=== PATIENT | male | born 1965 | race Hispanic/Latino ===

== ENCOUNTER 2018-06-27 11:47 | Observation (INO) | payer MEDICARE ==
[2018-06-26 16:53] LABS: BASOPHILS # (AUTO) 0.1 (0.0-0.1); BASOPHILS % 0.8 % (0.0-1.0); EOSINOPHILS # (AUTO) 0.2 (0.0-0.4); EOSINOPHILS % 1.9 % (0.0-6.0); HEMATOCRIT 44.4 % (38.2-49.6); HEMOGLOBIN 15.6 g/dL (14.0-18.0); LYMPHOCYTES # (AUTO) 2.1 (1.0-3.2); LYMPHOCYTES % 26.3 % (18.0-39.1); MEAN CORPUSCULAR HEMOGLOBIN 30.6 pg (28-32); MEAN CORPUSCULAR HGB CONC 35.1 g/dL (31-35); MEAN CORPUSCULAR VOLUME 87.1 fL (81-99); MONOCYTES # (AUTO) 0.7 (0.2-0.8); MONOCYTES % 8.4 % (4.4-11.3); NEUTROPHILS # (AUTO) 4.9 (2.1-6.9); NEUTROPHILS % 62.2 % (38.7-80.0); PLATELET COUNT 219 x10e3/uL (140-360); RED CELL DISTRIBUTION WIDTH 12.8 % (11.7-14.4)
[2018-06-26 17:05] LABS: INR 0.82; PROTHROMBIN TIME 12.1 seconds (11.9-14.5)
[2018-06-26 17:52] LABS: ANION GAP 15.9 mmol/L (8-16); BLOOD UREA NITROGEN 21 mg/dL (7-26); BUN/CREATININE RATIO 17 (6-25); CALCIUM 10.5 mg/dL (8.4-10.2); CARBON DIOXIDE 23 mmol/L (22-29); CHLORIDE 103 mmol/L (98-107); CREATININE, SERUM 1.21 mg/dL (0.72-1.25); EST GLOMERULAR FILTRATION RATE > 60 ML/MIN (60-); GLUCOSE 287 mg/dL (74-118); POTASSIUM 3.9 mmol/L (3.5-5.1); SODIUM 138 mmol/L (136-145)
[~2018-06-27] VITALS: Ht 167.6 cm; Wt 112.9 kg
[~2018-06-27 11:47] MED LIST: ASPIR 8181 MG PO; BACLOFEN10 MG PO; BYSTOLIC5 MG PO; FUROSEMIDE40 MG PO; HYDROCODONE-IBU1 TAB; LANTUS 3ML100 UNITS/ SQ; LEVEMIR SQ; LEVOTHYROXINE25 MCG PO; LEVOTHYROXINE50 MCG PO; LIPITOR10 MG PO; LISINOPRIL10 MG PO; LOSARTAN POTASS25 MG PO; METFORMIN HCL850 MG PO; METOPROLOL SUCC50 MG PO; METOPROLOL TART25 MG PO; MEVACOR20 MG PO; NAPROXEN500 MG PO; NITROGLYCERIN0.4 MG SL; NOVOLOG SQ; ONGLYZA5 MG PO; PLAVIX75 MG PO; POTASSIUM CHLO10 ME1 PO; RANEXA500 MG PO; TRICOR145 MG PO
[2018-06-27] MEDS ORDERED: BACITRACIN 50,000 UNIT VIAL ONE (13:04)
[2018-06-27] MEDS ORDERED: SODIUM CHLORIDE 0.9% 1000ML 2,000 ML ONE (13:05)
[2018-06-27] MEDS ORDERED: LIDOCAINE HCL 2% LOCAL 20 ML VIAL ONE (13:05)
[2018-06-27] MEDS ORDERED: SODIUM CHLORIDE 0.9% 500ML 500 ML ONE (13:05)
[2018-06-27] MEDS ORDERED: VANCOMYCIN 1GM/NS 250 ML 250 ML ONE (13:19)
[2018-06-27] MEDS ORDERED: FENTANYL CITRATE/PF 100MCG/2 ML INJ ONE ×2 (15:47→19:31)
[2018-06-27] MEDS ORDERED: NITROGLYCERIN 0.4 MG SUBL SL PRN (16:45)
[2018-06-27] MEDS ORDERED: ONDANSETRON HCL INJ 2 MG/ML VIAL IV PRN (16:45)
[2018-06-27 16:50] VITALS: BP 123/83
[2018-06-27 17:05] VITALS: BP 123/83
[2018-06-27] MEDS: METOPROLOL TARTRATE 25 MG TAB PO SCH (17:05)
[2018-06-27] MEDS: METFORMIN HCL 850 MG TAB PO SCH (17:05)
[2018-06-27] MEDS ORDERED: PROPOFOL IV EMULSION 10 MG/ML 20 ML VIAL ONE (17:09)
[2018-06-27] MEDS: MORPHINE SULFATE 2 MG/ML SYR IV PRN ×2 (17:10→21:18)
[2018-06-27] MEDS ORDERED: MIDAZOLAM HCL 2 MG/2 ML VIAL ONE (19:31)
[2018-06-27 20:00] VITALS: BP 130/74
[2018-06-27] MEDS ORDERED: FENOFIBRATE 145 MG TAB PO SCH (21:00)
[2018-06-27] MEDS ORDERED: INSULIN DETEMIR 100 UNIT/ML PEN SQ SCH ×2 (21:00→21:15)
[2018-06-27] MEDS: BACLOFEN 10 MG TAB PO SCH (21:07)
[2018-06-28] VITALS: BP 142/83
[2018-06-28] MEDS: MORPHINE SULFATE 2 MG/ML SYR IV PRN ×2 (01:25→07:23)
[2018-06-28 04:00] VITALS: BP 142/89
[2018-06-28 04:42] VITALS: BP 142/83
[2018-06-28] MEDS ORDERED: LEVOTHYROXINE SODIUM 25 MCG TABLET PO SCH (06:00)
[2018-06-28 08:34] VITALS: BP 134/82
[2018-06-28] MEDS: METFORMIN HCL 850 MG TAB PO SCH (08:39)
[2018-06-28] MEDS: BACLOFEN 10 MG TAB PO SCH (08:40)
[2018-06-28] MEDS: METOPROLOL TARTRATE 25 MG TAB PO SCH (08:40)
[2018-06-28] MEDS ORDERED: FUROSEMIDE 40 MG TAB PO SCH (09:00)
[2018-06-28] MEDS ORDERED: ATORVASTATIN 10 MG TAB PO SCH (09:00)
[2018-06-28] MEDS ORDERED: CLOPIDOGREL BISULFATE 75 MG TAB PO SCH (09:00)
[2018-06-28] MEDS ORDERED: ATORVASTATIN 20 MG TAB PO SCH ×3 (09:00→21:00)
[2018-06-28] MEDS ORDERED: POTASSIUM CHLORIDE 10MEQ EA PO SCH (09:00)
[2018-06-28] MEDS ORDERED: ASPIRIN 81 MG CHEW TAB PO SCH (09:00)
[2018-06-28] MEDS ORDERED: MINOCYCLINE HCL50 MG PO (09:23)
[2018-06-28] MEDS ORDERED: ULTRAM50 MG PO (09:24)
--- NOTE | 2018-06-28 09:49 | Operative Report ---
DATE OF PROCEDURE: June 27, 2018 PREPROCEDURE DIAGNOSES: 1. 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 2. Congestive heart failure, class 2-3. 3. History of myocardial infarction more than 3 months ago. POSTPROCEDURE DIAGNOSES: 1. 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 2. Congestive heart failure, class 2-3. 3. History of myocardial infarction more than 3 months ago. ESTIMATED BLOOD LOSS: 10 mL. COMPLICATIONS: None. ANESTHESIA: General. PROCEDURE PERFORMED: Subcutaneous cardiac defibrillator placement. DESCRIPTION OF PROCEDURE: After informed consent was obtained, patient was brought to the electrophysiology laboratory in a fasting, nonsedated state. Area over his chest was prepped and draped in the usual sterile fashion. General anesthesia was started. Prophylactic antibiotic was given, 1% lidocaine was used as a local anesthetic, and a 4-cm skin incision was made in the left sixth intercostal space with anterior axillary line. Electrocautery, sharp and blunt dissection were used to reach the fascia. In the same manner, a second incision was made in the left paraxiphoid area until reaching the fascia. The lead was advanced through the subcutaneous tissue from the lateral to the mid incision and then advanced cranially following the left parasternal border. The lead was secured to fascia in the mid incision using a suture sleeve with #0 silk, and then in the lateral incision, the lead was connected to the device and entire ICD system placed in the pocket. Pocket was irrigated with antibiotic solution using the pulse wicker worker. Hemostasis was meticulous. The incisions were closed using Vicryl and Dermabond. Patient tolerated the procedure well. Procedure was deemed complete. SUMMARY OF HARDWARE IMPLANTED: 1. The new defibrillator is [employer], model #[id number], [id number]. 2. The ICD lead is [employer], 3401, [id number]. IMPRESSION: Successful subcutaneous cardiac defibrillator placement. PLAN: 1. Routine postop monitoring in telemetry bed. 2. Chest x-ray. 3. Follow up in 2 weeks. Job#: [id number]
--- OUTSIDE RECORDS SUMMARY | 2018-07-04 12:17 | XMS REPORT | Clinical Summary ---
Author Author SHAILESH [facility] Address Unknown Phone Unavailable Care Team Providers Care Patient Account Specialist Name Role Phone PCP Unavailable Allergies No Known Allergies Current Medications Prescription Sig. Disp. Refills Start End Date Status Date metoprolol (TOPROL-XL) 50 Take 50 mg by mouth Active MG 24 hr daily. tabletIndications: hypertension levothyroxine (SYNTHROID, Take 50 mcg by mouth Active LEVOTHROID) 50 MCG Every morning on an empty tabletIndications: stomach. hypothyroidism isosorbide mononitrate Take 60 mg by mouth Active (IMDUR) 60 MG 24 hr daily. tablet metFORMIN (GLUCOPHAGE) Take 1,000 mg by mouth 2 Active 1000 MG (two) times daily with tabletIndications: type 2 breakfast and dinner. diabetes mellitus ranolazine (RANEXA) 500 Take 500 mg by mouth 2 Active MG 12 hr tablet (two) times daily. linagliptin 5 mg Tab Take 5 mg by mouth daily. Active aspirin 81 MG EC Take 81 mg by mouth Active tabletIndications: daily. Myocardial Reinfarction Prevention furosemide (LASIX) 40 MG Take 40 mg by mouth 2 Active tabletIndications: (two) times daily. Peripheral Edema due to Chronic Heart Failure potassium chloride Take 10 mEq by mouth Active (KLOR-CON) 10 MEQ CR daily. tabletIndications: hypokalemia prevention atorvastatin (LIPITOR) 20 Take 20 mg by mouth Active MG tabletIndications: daily. hypercholesterolemia, myocardial infarction prevention, primary prevention of coronary heart disease insulin glargine (LANTUS) Inject 100 Units Active 100 unit/mL subcutaneously nightly injectionIndications: Use as directed . type 2 diabetes mellitus clopidogrel (PLAVIX) 75 Take 75 mg by mouth Active mg tabletIndications: daily. Myocardial Reinfarction Prevention acetaminophen-codeine Take 1 tablet by mouth Active (TYLENOL #3) 300-30 mg every 12 (twelve) hours per tabletIndications: as needed for Pain. Pain insulin lispro (HUMALOG) Inject 0-8 Units 10 mL 0 05/21/20 05/21/20 100 unit/mL injection subcutaneously as needed 17 18 (High blood sugar). Active Problems Problem Noted Date Coronary artery disease involving [place] coronary artery without angina 05/18/2017 pectoris Stented coronary artery 05/18/2017 Type 2 diabetes mellitus (HCC) 05/18/2017 Obesity due to excess calories 05/18/2017 [place]-rectal abscess 05/17/2017 Non-smoker HTN (hypertension) CAD (coronary artery disease), [place] coronary artery Social History Tobacco Use Types Packs/Day Years Used Date Never Smoker Smokeless Tobacco: Never Used Sex Assigned at Date Recorded Not on file Last Filed Vital Signs Not on file Plan of Treatment Not on file Results * ECHOCARDIOGRAM REPORT - SCAN (06/27/2017 10:20 AM) after 06/26/2017
--- OUTSIDE RECORDS SUMMARY | 2018-07-04 12:17 | XMS REPORT | Summary of Care ---
Author Author Toy OCHOA, Sarah [facility] Unknown Address [facility] Phone Unavailable Care Team Providers Care Patient Service Rep Name Role Phone HINKLE P.A., JAIDA Unavailable Unavailable ANDREEA Noe, NOREEN Unavailable Unavailable IRINA YUSUF [place], WES [place] Unavailable Unavailable HINKLE AHP [facility], JAIDA Unavailable Unavailable Andreea YUSUF, Noreen Unavailable Unavailable IRINA Noe, WES Unavailable Unavailable Unavailable Unavailable Functional Status Name Dates Details Functional status health issues are not documented Status: Name Dates Details Cognitive status health issues are not documented Status: Problems Name Dates Details Cough, persistent (786.2, R05) Status: Active Chronic low back pain (724.2, M54.5) Status: Active Other insomnia (780.52, G47.09) Status: Active Anginal pain (413.9, I20.9) Status: Active Boil (680.9, L02.92) Status: Active CAD S/P percutaneous coronary angioplasty (414.01, I25.10) Status: Active History of SD (myocardial infarction) (412, I25.2) Status: Active Flu vaccine need (V04.81, Z23) Status: Active Diabetes mellitus type 2, uncontrolled (250.02, E11.65) Status: Active Neuropathy (355.9, G62.9) Status: Active Mixed hyperlipidemia (272.2, E78.2) Status: Active Benign essential HTN (401.1, I10) Status: Active Medications Name Dates Details Aspir-81 TBEC TAKE 1 TABLET DAILY Active Metoprolol Succinate ER 50 MG Oral Tablet Extended Release 24 Hour TAKE 1 TABLET TWICE DAILY * Quantity: 180 Refills: 1 NOREEN RING M.D. * Start : 30-May-2017 Active Isosorbide Mononitrate ER 60 MG Oral Tablet Extended Release 24 Hour TAKE 1 TABLET EVERY DAY * Quantity: 90 Refills: 1 HINKLE P.A., JAIDA * Start : 05-Aug-2017 Active Clopidogrel Bisulfate 75 MG Oral Tablet TAKE 1 TABLET DAILY. * Quantity: 90 Refills: 0 HINKLE P.A., JAIDA * Start : 15-Nov-2017 Active Levothyroxine Sodium 50 MCG Oral Tablet TAKE 1 TABLET EVERY DAY * Quantity: 90 Refills: 0 HINKLE P.A., JAIDA * Start : 13-Dec-2017 Active Atorvastatin Calcium 20 MG Oral Tablet TAKE 1 TABLET DAILY * Quantity: 3 Refills: 0 HINKLE P.A., AJIDA * Start : 21-Mar-2017 Active 30 Tablet Pack Furosemide 40 MG Oral Tablet TAKE 1 TABLET DAILY * Quantity: 90 Refills: 0 HINKLE P.A., JAIDA Active Lantus SoloStar 100 UNIT/ML Subcutaneous Solution Pen-injector INJECT 100 UNIT DAILY. DUE FOR 3 MONTH FOLLOW UP. PLEASE SCHEDULE APPOINTMENT FOR OFFICE VISIT. * Quantity: 1 Refills: 0 HINKLE P.A., JAIDA * Start : 15-Nov-2017 Active 3 ML Pen MetFORMIN HCl - 1000 MG Oral Tablet TAKE 1 TABLET Every twelve hours * Quantity: 180 Refills: 0 HINKLE P.A., JAIDA * Start : 13-Dec-2016 Active Nitroglycerin 0.4 MG Sublingual Tablet Sublingual PLACE 1 TAB UNDER THE TONGUE EVERY 5 MINUTES FOR UP TO 3 DOSES NEED[address] FOR [facility] PAIN. CALL 911 IF PAIN PERSISTS 5 MINUTES AFTER 3rd DOSE * Quantity: 25 Refills: 0 NOREEN RING M.D. * Start : 25-Jan-2017 Active Potassium Chloride Patrica ER 10 MEQ Oral Tablet Extended Release TAKE 1 TABLET EVERY DAY * Quantity: 90 Refills: 0 HINKLE P.A., JAIDA * Start : 24-Mar-2017 Active Tradjenta 5 MG Oral Tablet TAKE 1 TABLET DAILY * Quantity: 90 Refills: 1 HINKLE P.A., JAIDA * Start : 09-May-2017 Active Acetaminophen-Codeine #4 300-60 MG Oral Tablet TAKE 1 TABLET EVERY 6 TO 8 HOURS NEEDED FOR PAIN. * Quantity: 30 Refills: 0 Active Gabapentin 300 MG Oral Capsule TAKE 1 CAPSULE BEDTIME * Quantity: 90 Refills: 1 HINKLE P.A., JAIDA * Start : 08-Aug-2017 Active Allergies and Adverse Reactions Name Dates Details Bactrim DS TABS (Allergy) Status: Active Past Medical History Name Dates Details History of diabetes insipidus (V12.29, Z86.39) Status: Resolved History of hyperglycemia (V12.29, Z86.39) Status: Resolved History of hyperthyroidism (V12.29, Z86.39) Status: Resolved Procedures Procedure Dates Details History of Back Surgery Completed History of Neck Surgery Completed History of Heart Surgery Completed History of Knee Surgery Completed Immunization Name Dates Details Fluzone Quadrivalent 0.5 ML Intramuscular Suspension Prefilled Syringe Lot #: [id number] on: 08-Aug-2017 Family History Name Dates Details Family history of diabetes mellitus (V18.0, Z83.3) Status: Active Social History Name Dates Details - Status: Name Dates Details Former smoker Vital Signs Date Test Result Details No Known Vitals to report Results Date Description Value Details Results not documented Plan of Care Name Dates Details Planned Observations Planned Goals not documented Instructions Name Dates Details Instructions not documented Encounters Appointment; JAIDA HINKLE P.A. Encounter Diagnosis: Problem not documented On: 13-Dec-2016 14:00 Appointment; JAIDA HINKLE P.A. Encounter Diagnosis: Problem not documented On: 13-Jan-2017 9:30 Appointment; NOREEN RING M.D. Encounter Diagnosis: Problem not documented On: 25-Jan-2017 11:20 Appointment; [facility] [place] Encounter Diagnosis: Problem not documented On: 03-Feb-2017 10:00 Appointment; [facility] [place]UC[facility]AR Encounter Diagnosis: Problem not documented On: 05-Apr-2017 8:30 Appointment; NOREEN RING M.D. Encounter Diagnosis: Problem not documented On: 12-Apr-2017 14:00 Appointment; NOREEN RING M.D. Encounter Diagnosis: Problem not documented On: 04-May-2017 13:40 Appointment; JAIDA HINKLE P.A. Encounter Diagnosis: Problem not documented On: 09-May-2017 9:30 Appointment; NOREEN RING M.D. Encounter Diagnosis: Problem not documented On: 15-Jun-2017 13:40 Appointment; JAIDA HINKLE P.A. Encounter Diagnosis: Problem not documented On: 08-Aug-2017 9:30
--- OUTSIDE RECORDS SUMMARY | 2018-07-04 12:18 | XMS REPORT ---
Author Author [facility] Address Unknown Phone Unavailable Care Team Providers Care Air Battle Manager Name Role Phone Capo SANTIAGO Unavailable Unavailable Problems This patient has no known problems. Allergies, Adverse Reactions, Alerts This patient has no known allergies or adverse reactions. Medications This patient has no known medications. Results Test Description Test Time Test Comments Text Results Atomic Results Result Comments BLOOD CULTURE 2017-05-23 00:00:00 CULTURE (BEAKER) (test wrry=7287) No growth in 5 days BLOOD [id number] 00:00:00* Test Item Value Reference Range Comments CULTURE (BEAKER) (test ijdm=2551) No growth in 5 days POCT-GLUCOSE [id number] 12:18:00* Test Item Value Reference Range Comments POC-GLUCOSE METER (BEAKER) (test jeom=4237) 277 mg/dL 70-110 TESTED AT [address] [address] POCT-GLUCOSE [id number] 07:57:00* Test Item Value Reference Range Comments POC-GLUCOSE METER (BEAKER) (test suqc=1209) 151 mg/dL 70-110 TESTED AT [address] [address] CBC W/PLT COUNT & AUTO [id number] 05:26:00* Test Item Value Reference Range Comments WHITE BLOOD CELL COUNT (BEAKER) (test zbww=261) 7.9 K/ L 3.5-10.5 RED BLOOD CELL COUNT (BEAKER) (test htug=621) 4.19 M/ L 4.63-6.08 HEMOGLOBIN (BEAKER) (test xtxo=631) 12.3 GM/DL 13.7-17.5 HEMATOCRIT (BEAKER) (test ffoy=061) 35.4 % 40.1-51.0 MEAN CORPUSCULAR VOLUME (BEAKER) (test oksa=030) 84.5 fL 79.0-92.2 MEAN CORPUSCULAR HEMOGLOBIN (BEAKER) (test ymur=377) 29.4 pg 25.7-32.2 MEAN CORPUSCULAR HEMOGLOBIN CONC (BEAKER) (test lmsq=470) 34.7 GM/DL 32.3-36.5 RED CELL DISTRIBUTION WIDTH (BEAKER) (test abhv=236) 11.9 % 11.6-14.4 PLATELET COUNT (BEAKER) (test jbud=004) 270 K/CU MM 150-450 MEAN PLATELET VOLUME (BEAKER) (test bzdu=812) 8.6 fL 9.4-12.4 NUCLEATED RED BLOOD CELLS (BEAKER) (test zlsc=548) 0 /100 WBC 0-0 NEUTROPHILS RELATIVE PERCENT (BEAKER) (test nexk=709) 68 % LYMPHOCYTES RELATIVE PERCENT (BEAKER) (test tley=643) 21 % MONOCYTES RELATIVE PERCENT (BEAKER) (test djfp=407) 8 % EOSINOPHILS RELATIVE PERCENT (BEAKER) (test gxwb=561) 3 % BASOPHILS RELATIVE PERCENT (BEAKER) (test trbb=015) 0 % NEUTROPHILS ABSOLUTE COUNT (BEAKER) (test jnbu=538) 5.36 K/ L 1.78-5.38 LYMPHOCYTES ABSOLUTE COUNT (BEAKER) (test loec=256) 1.61 K/ L 1.32-3.57 MONOCYTES ABSOLUTE COUNT (BEAKER) (test tued=589) 0.61 K/ L 0.30-0.82 EOSINOPHILS ABSOLUTE COUNT (BEAKER) (test ueqx=586) 0.20 K/ L 0.04-0.54 BASOPHILS ABSOLUTE COUNT (BEAKER) (test hzkr=917) 0.03 K/ L 0.01-0.08 IMMATURE GRANULOCYTES-RELATIVE PERCENT (BEAKER) (test tecb=3630) 1 % 0-1 POCT-GLUCOSE [id number] 21:06:00* Test Item Value Reference Range Comments POC-GLUCOSE METER (BEAKER) (test kgzw=7189) 230 mg/dL 70-110 TESTED AT [facility] [address] [facility] [address] POCT-GLUCOSE [id number] 17:39:00* Test Item Value Reference Range Comments POC-GLUCOSE METER (BEAKER) (test qmfy=3942) 174 mg/dL 70-110 TESTED AT [facility] [address] [facility] [address] POCT-GLUCOSE [id number] 13:24:00* Test Item Value Reference Range Comments POC-GLUCOSE METER (BEAKER) (test ijin=5305) 182 mg/dL 70-110 TESTED AT [facility] [address] [facility] [address] WOUND CULTURE + GRAM [id number] 08:49:00* Test Item Value Reference Range Comments CULTURE (BEAKER) (test pmip=9576) ENTEROCOCCUS SPECIES <1+ Enterococcus species Ampicillin (test code=26) Linezolid (test code=40) Vancomycin (test code=13) GRAM STAIN RESULT (BEAKER) (test hsrk=0971) 2+ WBCs GRAM STAIN RESULT (BEAKER) (test jxlo=635420) <1+ gram positive rods GRAM STAIN RESULT (BEAKER) (test qdmx=646395) 1+ gram positive cocci in pairs 1+ skin floraPOCT-GLUCOSE [id number] 08:04:00* Test Item Value Reference Range Comments POC-GLUCOSE METER (BEAKER) (test rrqb=5265) 194 mg/dL 70-110 TESTED AT [place] [id number] [facility] [address] BASIC METABOLIC [id number] 05:47:00* Test Item Value Reference Range Comments SODIUM (BEAKER) (test twct=713) 137 meq/L 136-145 POTASSIUM (BEAKER) (test bkuz=257) 3.9 meq/L 3.5-5.1 CHLORIDE (BEAKER) (test otfu=945) 105 meq/L 98-107 CO2 (BEAKER) (test imcv=342) 23 meq/L 22-29 BLOOD UREA NITROGEN (BEAKER) (test amlk=320) 10 mg/dL 7-21 CREATININE (BEAKER) (test vavz=304) 0.87 mg/dL 0.57-1.25 GLUCOSE RANDOM (BEAKER) (test rjvv=432) 186 mg/dL 70-105 CALCIUM (BEAKER) (test ayae=065) 9.0 mg/dL 8.4-10.2 EGFR (BEAKER) (test xyms=3813) mL/min/1.73 sq m INSUFFICIENT CLINICAL DATA TO CALCULATE ESTIMATED GFR. [id number] 05:46:00* Test Item Value Reference Range Comments MAGNESIUM (BEAKER) (test hcwi=034) 1.6 mg/dL 1.6-2.6 CBC W/PLT COUNT & AUTO [id number] 05:37:00* Test Item Value Reference Range Comments WHITE BLOOD CELL COUNT (BEAKER) (test odeg=669) 6.7 K/ L 3.5-10.5 RED BLOOD CELL COUNT (BEAKER) (test qygk=282) 4.44 M/ L 4.63-6.08 HEMOGLOBIN (BEAKER) (test qstx=676) 13.1 GM/DL 13.7-17.5 HEMATOCRIT (BEAKER) (test lfyb=528) 37.5 % 40.1-51.0 MEAN CORPUSCULAR VOLUME (BEAKER) (test zopx=892) 84.5 fL 79.0-92.2 MEAN CORPUSCULAR HEMOGLOBIN (BEAKER) (test hlvu=243) 29.5 pg 25.7-32.2 MEAN CORPUSCULAR HEMOGLOBIN CONC (BEAKER) (test fugv=853) 34.9 GM/DL 32.3-36.5 RED CELL DISTRIBUTION WIDTH (BEAKER) (test xjiv=591) 11.7 % 11.6-14.4 PLATELET COUNT (BEAKER) (test iuuq=949) 272 K/CU MM 150-450 MEAN PLATELET VOLUME (BEAKER) (test ggnw=591) 8.6 fL 9.4-12.4 NUCLEATED RED BLOOD CELLS (BEAKER) (test xrrz=054) 0 /100 WBC 0-0 NEUTROPHILS RELATIVE PERCENT (BEAKER) (test jxpi=875) 65 % LYMPHOCYTES RELATIVE PERCENT (BEAKER) (test tfxi=652) 21 % MONOCYTES RELATIVE PERCENT (BEAKER) (test exom=340) 9 % EOSINOPHILS RELATIVE PERCENT (BEAKER) (test nbfy=555) 3 % BASOPHILS RELATIVE PERCENT (BEAKER) (test snat=735) 1 % NEUTROPHILS ABSOLUTE COUNT (BEAKER) (test bobi=683) 4.40 K/ L 1.78-5.38 LYMPHOCYTES ABSOLUTE COUNT (BEAKER) (test baxg=598) 1.38 K/ L 1.32-3.57 MONOCYTES ABSOLUTE COUNT (BEAKER) (test liqb=949) 0.61 K/ L 0.30-0.82 EOSINOPHILS ABSOLUTE COUNT (BEAKER) (test edqp=202) 0.23 K/ L 0.04-0.54 BASOPHILS ABSOLUTE COUNT (BEAKER) (test slrt=646) 0.04 K/ L 0.01-0.08 IMMATURE GRANULOCYTES-RELATIVE PERCENT (BEAKER) (test hwkc=6921) 1 % 0-1 POCT-GLUCOSE [id number] 21:14:00* Test Item Value Reference Range Comments POC-GLUCOSE METER (BEAKER) (test tmtx=7392) 224 mg/dL 70-110 TESTED AT [address] [address] POCT-GLUCOSE [id number] 17:15:00* Test Item Value Reference Range Comments POC-GLUCOSE METER (BEAKER) (test enyy=5236) 219 mg/dL 70-110 TESTED AT [address] [address] POCT-GLUCOSE [id number] 12:20:00* Test Item Value Reference Range Comments POC-GLUCOSE METER (BEAKER) (test qfyy=9664) 278 mg/dL 70-110 TESTED AT [address] [address] POCT-GLUCOSE [id number] 08:06:00* Test Item Value Reference Range Comments POC-GLUCOSE METER (BEAKER) (test oeks=1226) 204 mg/dL 70-110 TESTED AT [address] [address] BASIC METABOLIC [id number] 06:21:00* Test Item Value Reference Range Comments SODIUM (BEAKER) (test eufn=912) 132 meq/L 136-145 POTASSIUM (BEAKER) (test qxpl=047) 4.2 meq/L 3.5-5.1 CHLORIDE (BEAKER) (test tgjw=455) 102 meq/L 98-107 CO2 (BEAKER) (test hjtd=305) 23 meq/L 22-29 BLOOD UREA NITROGEN (BEAKER) (test dyok=943) 12 mg/dL 7-21 CREATININE (BEAKER) (test wakp=395) 0.86 mg/dL 0.57-1.25 GLUCOSE RANDOM (BEAKER) (test uzsg=251) 226 mg/dL 70-105 CALCIUM (BEAKER) (test gedd=317) 8.5 mg/dL 8.4-10.2 EGFR (BEAKER) (test iqww=4350) mL/min/1.73 sq m INSUFFICIENT CLINICAL DATA TO CALCULATE ESTIMATED GFR. [id number] 06:20:00* Test Item Value Reference Range Comments MAGNESIUM (BEAKER) (test soyq=543) 1.8 mg/dL 1.6-2.6 CBC W/PLT COUNT & AUTO [id number] 06:06:00* Test Item Value Reference Range Comments WHITE BLOOD CELL COUNT (BEAKER) (test dsbw=629) 7.1 K/ L 3.5-10.5 RED BLOOD CELL COUNT (BEAKER) (test tlso=723) 4.48 M/ L 4.63-6.08 HEMOGLOBIN (BEAKER) (test aoxo=818) 13.2 GM/DL 13.7-17.5 HEMATOCRIT (BEAKER) (test xerv=706) 38.3 % 40.1-51.0 MEAN CORPUSCULAR VOLUME (BEAKER) (test vbwb=573) 85.5 fL 79.0-92.2 MEAN CORPUSCULAR HEMOGLOBIN (BEAKER) (test pzck=816) 29.5 pg 25.7-32.2 MEAN CORPUSCULAR HEMOGLOBIN CONC (BEAKER) (test livf=949) 34.5 GM/DL 32.3-36.5 RED CELL DISTRIBUTION WIDTH (BEAKER) (test sbzk=126) 11.9 % 11.6-14.4 PLATELET COUNT (BEAKER) (test vcjj=403) 261 K/CU MM 150-450 MEAN PLATELET VOLUME (BEAKER) (test dzce=202) 8.8 fL 9.4-12.4 NUCLEATED RED BLOOD CELLS (BEAKER) (test fmbf=544) 0 /100 WBC 0-0 NEUTROPHILS RELATIVE PERCENT (BEAKER) (test cyrp=340) 68 % LYMPHOCYTES RELATIVE PERCENT (BEAKER) (test buok=971) 17 % MONOCYTES RELATIVE PERCENT (BEAKER) (test avli=736) 9 % EOSINOPHILS RELATIVE PERCENT (BEAKER) (test haxd=979) 4 % BASOPHILS RELATIVE PERCENT (BEAKER) (test iwtu=203) 1 % NEUTROPHILS ABSOLUTE COUNT (BEAKER) (test nelw=207) 4.84 K/ L 1.78-5.38 LYMPHOCYTES ABSOLUTE COUNT (BEAKER) (test pdjw=729) 1.24 K/ L 1.32-3.57 MONOCYTES ABSOLUTE COUNT (BEAKER) (test bemo=246) 0.63 K/ L 0.30-0.82 EOSINOPHILS ABSOLUTE COUNT (BEAKER) (test efva=937) 0.29 K/ L 0.04-0.54 BASOPHILS ABSOLUTE COUNT (BEAKER) (test gytx=476) 0.05 K/ L 0.01-0.08 IMMATURE GRANULOCYTES-RELATIVE PERCENT (BEAKER) (test irmw=8528) 1 % 0-1 POCT-GLUCOSE [id number] 21:04:00* Test Item Value Reference Range Comments POC-GLUCOSE METER (BEAKER) (test smqh=4879) 205 mg/dL 70-110 TESTED AT [address] [address] POCT-GLUCOSE [id number] 17:16:00* Test Item Value Reference Range Comments POC-GLUCOSE METER (BEAKER) (test tmne=4829) 240 mg/dL 70-110 TESTED AT [address] [address] POCT-GLUCOSE [id number] 12:09:00* Test Item Value Reference Range Comments POC-GLUCOSE METER (BEAKER) (test kpis=6562) 226 mg/dL 70-110 TESTED AT [address] [address] HEMOGLOBIN [id number] 08:40:00* Test Item Value Reference Range Comments HEMOGLOBIN A1C (BEAKER) (test elxe=603) 9.0 % 4.3-6.1 POCT-GLUCOSE [id number] 05:51:00* Test Item Value Reference Range Comments POC-GLUCOSE METER (BEAKER) (test ngff=5757) 180 mg/dL 70-110 TESTED AT [address] [address] BASIC METABOLIC [id number] 05:15:00* Test Item Value Reference Range Comments SODIUM (BEAKER) (test dntt=569) 135 meq/L 136-145 POTASSIUM (BEAKER) (test nisb=844) 4.2 meq/L 3.5-5.1 CHLORIDE (BEAKER) (test mxxu=123) 105 meq/L 98-107 CO2 (BEAKER) (test gmsj=629) 21 meq/L 22-29 BLOOD UREA NITROGEN (BEAKER) (test pdlu=625) 15 mg/dL 7-21 CREATININE (BEAKER) (test qnkf=633) 1.22 mg/dL 0.57-1.25 GLUCOSE RANDOM (BEAKER) (test zkca=280) 220 mg/dL 70-105 CALCIUM (BEAKER) (test eyqy=563) 9.1 mg/dL 8.4-10.2 EGFR (BEAKER) (test wubk=2907) mL/min/1.73 sq m INSUFFICIENT CLINICAL DATA TO CALCULATE ESTIMATED GFR. [id number] 05:11:00* Test Item Value Reference Range Comments MAGNESIUM (BEAKER) (test wxld=678) 1.7 mg/dL 1.6-2.6 CBC W/PLT COUNT & AUTO [id number] 05:08:00* Test Item Value Reference Range Comments WHITE BLOOD CELL COUNT (BEAKER) (test eirs=884) 11.6 K/ L 3.5-10.5 RED BLOOD CELL COUNT (BEAKER) (test vjih=033) 4.78 M/ L 4.63-6.08 HEMOGLOBIN (BEAKER) (test rdas=111) 14.2 GM/DL 13.7-17.5 HEMATOCRIT (BEAKER) (test jvjn=566) 41.9 % 40.1-51.0 MEAN CORPUSCULAR VOLUME (BEAKER) (test shzw=977) 87.7 fL 79.0-92.2 MEAN CORPUSCULAR HEMOGLOBIN (BEAKER) (test pyff=035) 29.7 pg 25.7-32.2 MEAN CORPUSCULAR HEMOGLOBIN CONC (BEAKER) (test mxxx=779) 33.9 GM/DL 32.3-36.5 RED CELL DISTRIBUTION WIDTH (BEAKER) (test bgqg=298) 12.0 % 11.6-14.4 PLATELET COUNT (BEAKER) (test arsm=025) 236 K/CU MM 150-450 MEAN PLATELET VOLUME (BEAKER) (test dfgr=246) 9.0 fL 9.4-12.4 NUCLEATED RED BLOOD CELLS (BEAKER) (test lbob=305) 0 /100 WBC 0-0 NEUTROPHILS RELATIVE PERCENT (BEAKER) (test zvce=154) 74 % LYMPHOCYTES RELATIVE PERCENT (BEAKER) (test xqdg=560) 13 % MONOCYTES RELATIVE PERCENT (BEAKER) (test xuhp=313) 9 % EOSINOPHILS RELATIVE PERCENT (BEAKER) (test zidc=080) 3 % BASOPHILS RELATIVE PERCENT (BEAKER) (test fkny=323) 1 % NEUTROPHILS ABSOLUTE COUNT (BEAKER) (test ursu=361) 8.59 K/ L 1.78-5.38 LYMPHOCYTES ABSOLUTE COUNT (BEAKER) (test jlxf=008) 1.44 K/ L 1.32-3.57 MONOCYTES ABSOLUTE COUNT (BEAKER) (test xjrs=090) 1.06 K/ L 0.30-0.82 EOSINOPHILS ABSOLUTE COUNT (BEAKER) (test eggy=602) 0.31 K/ L 0.04-0.54 BASOPHILS ABSOLUTE COUNT (BEAKER) (test rlhs=963) 0.08 K/ L 0.01-0.08 IMMATURE GRANULOCYTES-RELATIVE PERCENT (BEAKER) (test mzhe=7758) 1 % 0-1 POCT-GLUCOSE [id number] 00:12:00* Test Item Value Reference Range Comments POC-GLUCOSE METER (BEAKER) (test zqpj=5034) 137 mg/dL 70-110 TESTED AT [facility] [address] [facility] [address] B-TYPE NATRIURETIC FACTOR (BNP)2017-05-17 18:57:00* Test Item Value Reference Range Comments B-TYPE NATRIURETIC PEPTIDE (BEAKER) (test suft=107) 44 pg/mL 0-100 COMPREHENSIVE METABOLIC [id number] 18:36:00* Test Item Value Reference Range Comments TOTAL PROTEIN (BEAKER) (test rgsc=438) 7.6 gm/dL 6.0-8.3 ALBUMIN (BEAKER) (test ktve=9585) 3.4 g/dL 3.5-5.0 ALKALINE PHOSPHATASE (BEAKER) (test oqxa=670) 80 U/L 40-150 BILIRUBIN TOTAL (BEAKER) (test wehn=063) 0.9 mg/dL 0.2-1.2 SODIUM (BEAKER) (test nqea=746) 138 meq/L 136-145 POTASSIUM (BEAKER) (test inmp=313) 4.4 meq/L 3.5-5.1 CHLORIDE (BEAKER) (test wjlk=921) 102 meq/L 98-107 CO2 (BEAKER) (test pdyx=721) 27 meq/L 22-29 BLOOD UREA NITROGEN (BEAKER) (test mbye=946) 15 mg/dL 7-21 CREATININE (BEAKER) (test umsi=840) 1.15 mg/dL 0.57-1.25 GLUCOSE RANDOM (BEAKER) (test suzb=287) 102 mg/dL 70-105 CALCIUM (BEAKER) (test yuwh=256) 9.5 mg/dL 8.4-10.2 AST (SGOT) (BEAKER) (test zdoh=774) 17 U/L 5-34 ALT (SGPT) (BEAKER) (test hfxj=900) 18 U/L 6-55 EGFR (BEAKER) (test oqop=4376) mL/min/1.73 sq m INSUFFICIENT CLINICAL DATA TO CALCULATE ESTIMATED GFR. [id number] 18:35:00* Test Item Value Reference Range Comments MAGNESIUM (BEAKER) (test whij=753) 1.6 mg/dL 1.6-2.6 CBC W/PLT COUNT & AUTO [id number] 17:44:00* Test Item Value Reference Range Comments WHITE BLOOD CELL COUNT (BEAKER) (test nohq=103) 14.5 K/ L 3.5-10.5 RED BLOOD CELL COUNT (BEAKER) (test cbaf=045) 4.77 M/ L 4.63-6.08 HEMOGLOBIN (BEAKER) (test kenm=306) 14.0 GM/DL 13.7-17.5 HEMATOCRIT (BEAKER) (test toxu=418) 41.2 % 40.1-51.0 MEAN CORPUSCULAR VOLUME (BEAKER) (test okki=653) 86.4 fL 79.0-92.2 MEAN CORPUSCULAR HEMOGLOBIN (BEAKER) (test glxo=742) 29.4 pg 25.7-32.2 MEAN CORPUSCULAR HEMOGLOBIN CONC (BEAKER) (test agds=271) 34.0 GM/DL 32.3-36.5 RED CELL DISTRIBUTION WIDTH (BEAKER) (test jnmc=375) 12.0 % 11.6-14.4 PLATELET COUNT (BEAKER) (test hxup=217) 280 K/CU MM 150-450 MEAN PLATELET VOLUME (BEAKER) (test fciv=383) 8.6 fL 9.4-12.4 NUCLEATED RED BLOOD CELLS (BEAKER) (test mtmf=877) 0 /100 WBC 0-0 NEUTROPHILS RELATIVE PERCENT (BEAKER) (test fxdq=053) 79 % LYMPHOCYTES RELATIVE PERCENT (BEAKER) (test amyn=423) 9 % MONOCYTES RELATIVE PERCENT (BEAKER) (test hydi=697) 9 % EOSINOPHILS RELATIVE PERCENT (BEAKER) (test fkro=760) 2 % BASOPHILS RELATIVE PERCENT (BEAKER) (test yndd=919) 1 % NEUTROPHILS ABSOLUTE COUNT (BEAKER) (test dbqo=172) 11.36 K/ L 1.78-5.38 LYMPHOCYTES ABSOLUTE COUNT (BEAKER) (test fsxf=398) 1.33 K/ L 1.32-3.57 MONOCYTES ABSOLUTE COUNT (BEAKER) (test pjwh=214) 1.29 K/ L 0.30-0.82 EOSINOPHILS ABSOLUTE COUNT (BEAKER) (test lxes=994) 0.34 K/ L 0.04-0.54 BASOPHILS ABSOLUTE COUNT (BEAKER) (test bsrs=563) 0.07 K/ L 0.01-0.08 IMMATURE GRANULOCYTES-RELATIVE PERCENT (BEAKER) (test cjdp=4290) 1 % 0-1
--- OUTSIDE RECORDS SUMMARY | 2018-07-04 12:25 | XMS REPORT | Clinical Summary ---
Author Author [facility] Address Unknown Phone Unavailable Care Team Providers Care Animal Park Code Enforcement Officer Name Role Phone PCP Unavailable Allergies No [...] Problem Noted Date Coronary artery disease involving [place] coronary artery without angina 05/18/2017 pectoris Stented coronary artery 05/18/2017 Type 2 diabetes mellitus (HCC) 05/18/2017 Obesity due to excess calories 05/18/2017 [place]-rectal abscess 05/17/2017 Non-smoker HTN (hypertension) CAD (coronary artery disease), [place] coronary artery Social History Tobacco Use Types Packs/Day Years Used Date Never Smoker Smokeless Tobacco: Never Used Sex Assigned at Date Recorded Not on file Last Filed Vital Signs Not on file Plan of Treatment Not on file Results * ECHOCARDIOGRAM REPORT - SCAN (06/27/2017 10:20 AM) after 06/26/2017
--- NOTE | 2018-08-17 14:35 | Discharge Summary ---
REASON FOR ADMISSION: Elective procedure. HOSPITAL COURSE: Mr. Razo presented for an elective procedure. He underwent subcutaneous cardiac defibrillator placement without any issues. See report for details. The patient remained hemodynamically stable and was discharged home in stable condition. He is to follow up in the clinic in 2 weeks. See medication reconciliation form for details on discharge medicines. Discharge instructions were provided. The patient went home in stable condition. JANE GARCIA MD Job#: [id number] [place]
== END 2018-06-28 11:23 | disposition home or self-care (01) ==
LOC: CATH LAB 11:47 → PACU V 14:16 → EDSTATUS 15:00 → IMCU 16:13
PROVIDERS: ADMIT Internal Medicine; ATTEND Internal Medicine
DX: I11.0 Hypertensive heart disease with heart failure (principal); I50.22 Chronic systolic (congestive) heart failure; I25.10 Atherosclerotic heart disease of native coronary artery without angina pectoris; I25.2 Old myocardial infarction; E78.5 Hyperlipidemia, unspecified; E11.9 Type 2 diabetes mellitus without complications; Z95.5 Presence of coronary angioplasty implant and graft; G47.33 Obstructive sleep apnea (adult) (pediatric); E03.9 Hypothyroidism, unspecified; Z01.812 Encounter for preprocedural laboratory examination; Z79.4 Long term (current) use of insulin
CPT/HCPCS: 33270; 36415 ×3; 80048; 82948 ×2; 85025; 85610; C1722; C1896; G0378 ×2; J2001; J2250; J2270 ×2; J2405; J3370; J7030; J7040

== ENCOUNTER → 2020-02-07 | Outpatient (CLI) | payer MEDICARE, OTHER ==
[~2020-02-07] MED LIST changes: +MINOCYCLINE HCL50 MG PO; +ULTRAM50 MG PO
[2020-02-07 11:07] LABS: BASOPHILS # (AUTO) 0.1 (0.0-0.1); BASOPHILS % 0.7 % (0.0-1.0); EOSINOPHILS # (AUTO) 0.2 (0.0-0.4); EOSINOPHILS % 2.5 % (0.0-6.0); HEMATOCRIT 44.9 % (38.2-49.6); HEMOGLOBIN 15.8 g/dL (14.0-18.0); LYMPHOCYTES # (AUTO) 1.5 (1.0-3.2); LYMPHOCYTES % 21.7 % (18.0-39.1); MEAN CORPUSCULAR HEMOGLOBIN 29.7 pg (28-32); MEAN CORPUSCULAR HGB CONC 35.2 g/dL (31-35); MEAN CORPUSCULAR VOLUME 84.4 fL (81-99); MONOCYTES # (AUTO) 0.6 (0.2-0.8); MONOCYTES % 8.6 % (4.4-11.3); NEUTROPHILS # (AUTO) 4.7 (2.1-6.9); NEUTROPHILS % 66.4 % (38.7-80.0); PLATELET COUNT 239 x10e3/uL (140-360); RED BLOOD COUNT 5.32 x10e6/uL (4.3-5.7); RED CELL DISTRIBUTION WIDTH 12.3 % (11.7-14.4)
[2020-02-07 11:11] LABS: ALANINE AMINOTRANSFERASE 25 IU/L (0-55); ALBUMIN 3.7 g/dL (3.5-5.0); ALKALINE PHOSPHATASE 135 IU/L (40-150); ANION GAP 14.4 mmol/L (8-16); BLOOD UREA NITROGEN 24 mg/dL (7-26); BUN/CREATININE RATIO 21 (6-25); CALCIUM 9.8 mg/dL (8.4-10.2); CARBON DIOXIDE 21 mmol/L (22-29); CHLORIDE 106 mmol/L (98-107); CREATININE, SERUM 1.15 mg/dL (0.72-1.25); EST GLOMERULAR FILTRATION RATE > 60 ML/MIN (60-); GLUCOSE 343 mg/dL (74-118); POTASSIUM 4.4 mmol/L (3.5-5.1); SODIUM 137 mmol/L (136-145)
== END ==
LOC: DX 13:52 → EDSTATUS 02-12 16:00
PROVIDERS: ATTEND Internal Medicine Interventional Cardiology
DX: Z01.818 Encounter for other preprocedural examination (principal); I25.10 Atherosclerotic heart disease of native coronary artery without angina pectoris; Z11.59 Encounter for screening for other viral diseases
CPT/HCPCS: 36415; 80053; 85025; 87635